=== PATIENT | male | born 1940 | race Caucasian/White ===

== ENCOUNTER 2016-08-03 15:51 | Emergency (ER) | payer OTHER ==
[~2016-08-03 15:51] MED LIST: ADVIL PO; B 12; B 12 PO; B COMPLETE PO; CELEXA10 PO; CITRACAL PO; CO Q-10100 MG PO; CURCUMIN PO; CYANO1000T PO; FE C PO; FISH-EPA1000 MG PO; GARLIC OTC PO; GARLIC PO; GENTLE IRON OR; GENTLE IRON PO; GLUCOTROL5 PO; GLUCPH PO; GRAPESEED PO; LEVOTHYROXIN100 MCG PO; MIRALAXPKT PO; MULTIVITAMI1 PO; MVI PO; NATTOKINASE PO; PROSTATE FORMULA PO; PROTONIX PO; QUERCETIN PO; SAW PALMETTO PO; SYN075 PO; SYN1 PO; TUMMERIC PO; TURMERIC PO; UNKNOWN MEDS; VIT C/RHIPS/ PO; VITAMIN D1000 UNI1 PO; VITAMIN D31000 UNIT PO; [UNRECOGNIZED DRUG - CODE]; [UNRECOGNIZED DRUG - CODE] XX; [UNRECOGNIZED DRUG - OTHER] PO; [UNRECOGNIZED DRUG - OTHER] PO; [UNRECOGNIZED DRUG - OTHER] PO; [UNRECOGNIZED DRUG - OTHER] PO; [UNRECOGNIZED DRUG - OTHER] PO
== END 2016-08-03 19:05 | disposition home or self-care (01) ==
LOC: ER 15:51
DX: M54.17 Radiculopathy, lumbosacral region (principal); I10 Essential (primary) hypertension; Z98.61 Coronary angioplasty status; E11.9 Type 2 diabetes mellitus without complications; Z79.899 Other long term (current) drug therapy
CPT/HCPCS: 72100; 72220; 73700-LT; 99285

== ENCOUNTER 2016-08-16 19:47 | Emergency (ER) | payer OTHER ==
[2016-08-16 18:59] LABS: BASOPHILS 0.5 %; BASOPHILS ABSOLUTE 0.04 10/3/uL (0.0-0.16); EOSINOPHILS 0.9 %; EOSINOPHILS ABSOLUTE 0.07 10/3/uL (0.0-0.53); ER CBC TAT 0 Hrs 05 Mins; HEMATOCRIT 32.6 % (40.0-51.0); HEMOGLOBIN 10.9 g/dL (13.6-17.8); IMMATURE GRANULOCYTES 0.1 %; IMMATURE GRANULOCYTES ABSOLUTE 0.01 10/3/uL (0.0-0.11); LYMPHOCYTES 25.7 %; LYMPHOCYTES ABSOLUTE 1.98 10/3/uL (0.67-4.30); MEAN CORPUS HGB CONC 33.4 g/dL (32.0-36.0); MEAN CORPUSCULAR HEMOGLOB 32.6 pg (26.0-34.0); MEAN CORPUSCULAR VOLUME 97.6 fL (80-100); MEAN PLATELET VOLUME 9.3 fL (9.2-13.0); MONOCYTES ABSOLUTE 0.62 10/3/uL (0.21-1.20); NEUTROPHILS 64.8 %; NEUTROPHILS ABSOLUTE 4.99 10/3/uL (2.02-8.40); PLATELET COUNT 271 10/3/uL (150-400); RBC DISTRIBUTION WIDTH 13.9 % (12.0-16.0); RED CELL COUNT 3.34 10/6/uL (4.7-6.1); WHITE BLOOD CELLS 7.7 10/3/uL (4.5-10.5)
[2016-08-16 19:00] LABS: MANUAL DIFF NO %
[2016-08-16 19:06] LABS: INTERNATIONAL NORMAL RATI 1.1 UNITS (-); PROTIME (NOT ORD) 14.5 SEC (12.0-14.5)
[2016-08-16 19:07] LABS: PARTIAL THROMBO TIME 34.8 SEC (22.5-37.2)
[2016-08-16 19:16] LABS: CALCIUM, SERUM 9.8 MG/DL (8.5-10.4); CHEST PAIN PROFILE TAT 0 Hrs 22 Mins; CHLORIDE, SERUM 101 MMOL/L (96-112); CO2 (CARBON DIOXIDE) 30 MMOL/L (24-34); CREATININE 1.14 MG/DL (0.70-1.30); GFR AFRICAN AMERICAN 73 ML/MIN (>=60); GFR NON AFRICAN AMERICAN 63 ML/MIN (>=60); GLUCOSE, SERUM 82 MG/DL (60-99); SODIUM, SERUM 140 MMOL/L (135-148); TROPONIN I <0.02 NG/ML (<0.05)
[2016-08-16 19:17] LABS: BUN (BLOOD UREA NITROGEN) 20 MG/DL (6-23)
== END 2016-08-16 21:35 | disposition home or self-care (01) ==
LOC: ER 19:47
PROVIDERS: Emergency Medicine
DX: M79.604 Pain in right leg (principal); J02.9 Acute pharyngitis, unspecified; M54.31 Sciatica, right side; R10.2 Pelvic and perineal pain; I10 Essential (primary) hypertension; E11.9 Type 2 diabetes mellitus without complications; Z79.899 Other long term (current) drug therapy
CPT/HCPCS: 72192; 73590-RT; 80048; 83735; 84484; 85025; 85610; 85730; 93005; 96374; 99285; J1200

== ENCOUNTER 2016-10-25 11:35 | Day surgery (SDC) | payer OTHER ==
--- NOTE | ~2016-10-25 | EGD ---
EGD REPORT [facility] [address] [place] [id number] NAME: MOSHE JAMES : [birth year] STATUS : REG [facility]#: [id number] AGE: 76 ADM/REG DATE : 10/25/16 MR#: [id number] REPORT SERV DATE: 10/25/16 DICTATED BY: KAYLA BACON DATE: 10/25/16 REPORT STATUS : Draft TRANSCRIBED BY: [facility] DATE: 10/25/16 Endoscopy Center Patient Name: Moshe James Date of : 1940 Attending MD: KAYLA BACON MD Procedure Date No Time: 10/25/2016 Procedure: Colonoscopy Indications: High risk colon cancer surveillance: Personal history of colonic polyps Referring MD: CHRISTEN AMBROSE Medicines: Monitored Anesthesia Care Complications: No immediate complications. Procedure: Pre-Anesthesia Assessment: - ASA Grade Assessment: III - A patient with severe systemic disease. After I obtained informed consent, the scope was passed under direct vision. Throughout the procedure, the patient's blood pressure, pulse, and oxygen saturations were monitored continuously. The CF [id number] was introduced through the anus and advanced to the cecum, identified by appendiceal orifice and ileocecal valve. The colonoscopy was performed without difficulty. The patient tolerated the procedure well. The quality of the bowel preparation was adequate. Findings: The digital rectal exam was normal. Pertinent negatives include no palpable rectal lesions. Multiple diverticula were found in the sigmoid colon and in the descending colon. A few diverticula were found in the transverse colon and in the ascending colon. Hemorrhoids were found during retroflexion and were moderate. Impression: - Diverticulosis in the sigmoid colon and in the descending colon. - Diverticulosis in the transverse colon and in the ascending colon. - Hemorrhoids. Recommendation: - Patient has a contact number available for emergencies. The signs and symptoms of potential delayed complications were discussed with the patient. Return to normal activities tomorrow. Written discharge instructions were provided to the patient. EGD REPORT [place] [id number] [facility] [place]. [address] NAME: MOSHE JAMES : [birth year] STATUS : REG [facility] PAT#: [id number] AGE: 76 ADM/REG DATE : 10/25/16 MR#: [id number] REPORT SERV DATE: 10/25/16 DICTATED BY: KAYLA BACON DATE: 10/25/16 REPORT STATUS : Draft TRANSCRIBED BY: [employer] DATE: 10/25/16 - Regular diet. - Continue present medications. - Perform an esophagram at the next available appointment. He was complaining of dysphagia and will likely need upper endoscopy after barium esophagram. - Repeat colonoscopy in 5 years for surveillance. - Return to GI clinic PRN. Procedure Code(s): --- Professional --- 98721, Colonoscopy, flexible, proximal to splenic flexure; diagnostic, with or without collection of specimen(s) by brushing or washing, with or without colon decompression (separate procedure) Diagnosis Code(s): --- Professional --- K64.9, Unspecified hemorrhoids K57.30, Diverticulosis of large intestine without perforation or abscess without bleeding Z86.010, Personal history of colonic polyps CPT copyright 2013 [employer]. All rights reserved. The codes documented in this report are preliminary and upon tunnel heading inspector review may be revised to meet current compliance requirements. KAYLA BACON MD 10/25/2016 2:19 PM This report has been signed electronically. Number of Addenda: 0 Note Initiated On: 10/25/2016 1:40 PM Scope Withdrawal Time 0 hours 8 minutes 26 seconds [id number] [id number]
== END 2016-10-25 23:59 | disposition home health service (06) ==
LOC: DMU 11:35
PROVIDERS: Internal Medicine Gastroenterology
PROC: 0DJD8ZZ Inspection of Lower Intestinal Tract, Via Natural or Artificial Opening Endoscopic (ICD-10-PCS; principal; 2016-10-25 13:00)
DX: Z12.11 Encounter for screening for malignant neoplasm of colon (principal); K57.30 Diverticulosis of large intestine without perforation or abscess without bleeding; K64.9 Unspecified hemorrhoids; I25.10 Atherosclerotic heart disease of native coronary artery without angina pectoris; I10 Essential (primary) hypertension; G47.33 Obstructive sleep apnea (adult) (pediatric); K21.9 Gastro-esophageal reflux disease without esophagitis; E11.9 Type 2 diabetes mellitus without complications; F32.9 Major depressive disorder, single episode, unspecified; D64.9 Anemia, unspecified; I25.2 Old myocardial infarction; E03.9 Hypothyroidism, unspecified; G43.909 Migraine, unspecified, not intractable, without status migrainosus; Z86.010 Personal history of colon polyps; Z79.899 Other long term (current) drug therapy; Z87.891 Personal history of nicotine dependence; Z95.1 Presence of aortocoronary bypass graft; Z90.49 Acquired absence of other specified parts of digestive tract; Z98.890 Other specified postprocedural states
CPT/HCPCS: 82962